=== PATIENT | female | born 1990 | race African-American/Black ===

== ENCOUNTER 2021-04-25 02:04 | Emergency (ER) | payer SELFPAY ==
[2021-04-25 03:02] LABS: Bilirubin Neg (Negative); Blood, Urine 50 (Negative); Clarity Clear (Clear); Glucose, Urine (Dipstick) Normal (Negative); Ketone, Urine 15 mg/dL (Negative); Leukocyte 100 (Negative); Nitrite Negative (Negative); Protein, Urine (Dipstick) 30 mg/dl (Neg-Trace); Specific Gravity, Urine 1.025 (1.002-1.036); Urobilinogen Normal mg/dL (Less than 2)
[2021-04-25 03:06] LABS: Pregnancy Test - Urine (BHCG) Negative (Negative)
[2021-04-25 03:07] LABS: Pregu Control Background? CLEAR/WHITE (CLR/WHITE); Pregu Control Bar Appear? YES (CONTROL BAR); Specific Gravity 1.025 (1.002-1.036)
[2021-04-25 03:28] LABS: Bacteria/HPF 2+ HPF (None Seen); RBC/HPF 0-3 HPF (0-3)
== END 2021-04-25 03:43 | disposition home or self-care (01) ==
LOC: CSHERS 02:04
DX: N39.0 Urinary tract infection, site not specified (principal)
CPT/HCPCS: 81003; 81015; 81025; 99284